=== PATIENT | male | born 1950 | race Caucasian/White ===

== ENCOUNTER → 2021-09-22 13:45 | Outpatient (CLI) | payer BC, SELFPAY ==
--- NOTE | 2021-09-22 | DI.MRI.S_ITS ---
PROCEDURE: MR LUMBAR SPINE WO CON INDICATIONS: Low back pain, unspecified TECHNIQUE: Noncontrast sagittal T1 spin echo and T2 fast echo, sagittal STIR, and T2 fast spin echo through the lumbar spine. In cases with scoliosis, additional coronal T2 fast spin echo may be performed. COMPARISON: [facility], MR, MR LUMBAR SPINE WITHOUT CONTRAST, 10/14/2005, 10:22. [facility] [place], CR, XR LUMBAR SPINE WITH OBLIQUES PLUS FLEXION EXTENSION, 09/01/2021, 10:01. [facility], MR, MR LUMBAR SPINE WITHOUT CONTRAST, 06/10/2016, 11:54. [facility], MR, MR LUMBAR SPINE WITHOUT CONTRAST, 09/09/2011, 13:03. [facility], MR, L-SPINE WITHOUT CONTRAST, 09/09/2011, 13:03. FINDINGS: Image quality: Excellent. Alignment and Curvature: There is mild, approximately 5 millimeters of L4-L5 anterolisthesis secondary to facet hypertrophy. Bone Marrow: Modic type 2 reactive endplate changes noted adjacent to the L5-S1 disc. No acute vertebral body compression fractures. Spinal Cord: Conus medullaris terminates at the L1 level. Visualized cord demonstrates normal signal and size. Paraspinous Soft Tissues: No paravertebral masses. T12-L1: Slight loss of disc signal. No central stenosis. No neural foraminal narrowing. No neural compression. L1-L2: Slight loss of disc signal. No central stenosis. No neural foraminal narrowing. No neural compression. L2-L3: Slight loss of disc signal. Mild, diffuse disc bulge. Mild narrowing of the central canal. No neural foraminal narrowing. No neural compression. L3-L4: Loss of disc signal. Mild, diffuse disc bulge. No central stenosis. Mild bilateral neural foraminal narrowing. No neural compression. L4-L5: Loss of disc signal. Mild, diffuse disc bulge. Moderate bilateral facet hypertrophy. Severe narrowing of the central canal with slight compression of the traversing nerve roots of the cauda equina. Mild to moderate bilateral neural foraminal narrowing. L5-S1: Loss of disc signal and height. Mild, diffuse disc bulge. Mild bilateral facet hypertrophy. No central stenosis. Mild to moderate bilateral neural foraminal narrowing. No neural compression. IMPRESSION: 1. Grade 1 L4-L5 degenerative spondylolisthesis. 2. Multilevel degenerative disc disease. 3. Multilevel facet arthropathy. 4. Severe L4-L5 central canal narrowing with slight compression of the traversing nerve roots of the cauda equina. 5. No severe neural foraminal narrowing. Dictated by: Lauren Parisi MD, PhD on 09/22/2021 at 15:07 Approved by: Lauren Parisi MD, PhD on 09/22/2021 at 15:11
== END ==
PROVIDERS: Family Provider Family Medicine; PCP Family Medicine; Referring Provider Physical Medicine & Rehabilitation Pain Medicine; Visit Provider Physical Medicine & Rehabilitation Pain Medicine
DX: M51.36 Other intervertebral disc degeneration, lumbar region (principal); M51.37 Other intervertebral disc degeneration, lumbosacral region; M47.816 Spondylosis without myelopathy or radiculopathy, lumbar region; M47.817 Spondylosis without myelopathy or radiculopathy, lumbosacral region; M48.061 Spinal stenosis, lumbar region without neurogenic claudication; M43.16 Spondylolisthesis, lumbar region; M54.50 Low back pain, unspecified
CPT/HCPCS: 72148

== ENCOUNTER → 2024-06-14 13:45 | Outpatient (CLI) | payer MEDICARE, BC, SELFPAY ==
--- NOTE | 2024-06-14 13:49 | DI.ECHO.S_ITS ---
[facility] : : [address] : : [place] : : [id number] : : Phone: [phone] Echocardiogram Report + + :Name: BOYD BERGER Study Date: 06/14/2024 Height: 68 in : :[facility] ReadingLocation: Weight: 150 lb : : Gender: Male BSA: 1.8 m2 : :: 1950 Age: 74 yrs BP: 143/74 mmHg: :Reason For Study: HYPERTENSION : :Ordering Physician: AUDRA, : :JACOB Mcqueen Performed By: Wilian Guo : :Referring: JACOB ZHU : + + Interpretation Summary The left ventricle is normal in size. The ejection fraction is estimated to be 55-60%. There are no focal wall motion abnormalities. Diastolic parameters suggest a relaxation abnormality of the left ventricle, consistent with probable normal filling pressures. The right ventricle is normal in size and function. The right ventricular systolic pressure is estimated to be at least 41 mmHg based on an estimated right atrial pressure of 8 mm Hg. The left atrial size is normal. There is no significant valvular heart disease. The aortic root is normal size. Large hepatic cyst measuring 6.0 x 8.1 cm. Procedure: A two-dimensional transthoracic echocardiogram with color flow and Doppler was performed. The study quality was technically good. There is no prior echocardiogram noted for this patient. The patient was in normal sinus rhythm during the exam. Left Ventricle: The left ventricle is normal in size. There is normal left ventricular wall thickness. There is no ventricular septal defect visualized. The ejection fraction is estimated to be 55-60%. There are no focal wall motion abnormalities. Diastolic parameters suggest a relaxation abnormality of the left ventricle, consistent with probable normal filling pressures. Right Ventricle: The right ventricle is normal in size and function. Atria: The left atrial size is normal. Right atrial size is normal. There is no Doppler evidence for an interatrial shunt. Mitral Valve: The mitral valve leaflets appear normal. There is no evidence of stenosis, fluttering, or prolapse. There is no mitral regurgitation noted. Aortic Valve: The aortic valve is trileaflet. The aortic valve opens well. There is trace aortic regurgitation. Tricuspid Valve: The tricuspid valve leaflets are thin and pliable. There is trace tricuspid regurgitation. The right ventricular systolic pressure is estimated to be at least 41 mmHg based on an estimated right atrial pressure of 8 mm Hg. Pulmonic Valve: The pulmonic valve leaflets are thin and pliable; valve motion is normal. There is trace pulmonic regurgitation. There is no significant valvular heart disease. Great Vessels: The aortic root is normal size. The dimensions of the ascending aorta are normal. The pulmonary artery is normal size. The IVC is dilated (diameter is greater than 2.1 cm) yet it collapses greater than 50% with a sniff. This suggests a right atrial pressure of 8 mm Hg. Pericardium/ Pleura There is no pericardial effusion. There is no pleural effusion. Large hepatic cyst measuring 6.0 x 8.1 cm. MMode/2D Measurements & Calculations LVIDd: 4.4 cm LVOT diam: 2.1 cm LVIDs: 2.9 cm Ao root diam: 3.3 cm FS: 35.0 % asc Aorta Diam: 3.5 cm EPSS: 0.83 cm IVSd: 0.71 cm LVPWd: 0.77 cm LV olmedo. diameter/BSA (cm/m^2): 2.4 LV sys. diameter/BSA (cm/m^2): 1.6 LA A2 area: 18.1 cm2 RA long axis: 4.4 cm LA A4 area: 15.2 cm2 RA area: 11.6 cm2 LA length (vol): 4.6 cm RA vol: 25.7 ml LA vol: 50.9 ml RA : 14.2 ml/m2 LA vol index: 28.1 ml/m2 IVC diam: 2.3 cm RVD1 (basal): 3.4 cm RVD2 (mid): 3.3 cm TAPSE: 2.9 cm Doppler Measurements & Calculations Ao V2 max: 128.2 cm/sec LVOT Max Shamar: 110.4 cm/sec Ao V2 mean: 89.5 cm/sec LV V1 max P.9 mmHg Ao max P.6 mmHg LV V1 VTI: 21.3 cm Ao mean P.5 mmHg KARAN(I,D): 2.8 cm2 Ao V2 VTI: 26.6 cm KARAN(V,D): 3.0 cm2 sev ratio: 0.80 KARAN indexed to BSA (cm^2/m^2): 1.5 MV E max shamar: 82.0 cm/sec TR max shamar: 288.2 cm/sec MV A max shamar: 104.3 cm/sec TR max P.2 mmHg MV E/A: 0.79 PA V2 max: 91.2 cm/sec Med Peak E' Shamar: 5.4 cm/sec PA V2 mean: 63.8 cm/sec E/E' med: 15.1 PA mean P.8 mmHg Lat Peak E' Shamar: 6.4 cm/sec PA pr(Accel): 37.9 mmHg E/E' lat: 12.7 E/e' average: 13.9 MV dec time: 0.26 sec SV(LVOT): 73.5 ml Reading Physician:01:12 AM
== END ==
PROVIDERS: Family Provider Family Medicine; PCP Family Medicine; Referring Provider Family Medicine; Visit Provider Family Medicine
DX: G45.3 Amaurosis fugax (principal); I10 Essential (primary) hypertension; K76.89 Other specified diseases of liver
CPT/HCPCS: 93306

== ENCOUNTER → 2024-06-19 11:46 | Outpatient (CLI) | payer MEDICARE, BC, SELFPAY ==
--- NOTE | 2024-06-19 | DI.US.S_ITS ---
PROCEDURE: US CAROTID DOPPLER BI INDICATIONS: RIGHT EYE VISION LOSS. HYPERTENSION. TECHNIQUE: Color and pulse Doppler interrogation was performed of both carotid systems, with image documentation and velocity measurements. COMPARISON: None. FINDINGS: Stenosis calculations are based on SRU (Society of Radiologists in Ultrasound) criteria. Right side: Brachial blood pressure: 118/73 mm Hg. Common carotid artery peak systolic velocity: 77 cm/sec. Internal carotid artery peak systolic velocity: 90 cm/sec. Internal carotid artery end diastolic velocity: 32 cm/sec. External carotid artery peak systolic velocity: 132 cm/sec. ICA/CCA peak systolic ratio: 1.2 . Yao scale imaging description: Mild calcified atherosclerotic plaque present. Percent internal carotid artery stenosis: Less than 50 percent . Vertebral artery: Flow direction is antegrade. Left side: Brachial blood pressure: 120/70 mm Hg. Common carotid artery peak systolic velocity: 71 cm/sec. Internal carotid artery peak systolic velocity: 113 cm/sec. Internal carotid artery end diastolic velocity: 35 cm/sec. External carotid artery peak systolic velocity: 110 cm/sec. ICA/CCA peak systolic ratio: 1.6 . Yao scale imaging description: Mild atherosclerotic disease Percent internal carotid artery stenosis: Less than 50 percent . Vertebral artery: Flow direction is antegrade. IMPRESSION: 1. In the right carotid artery, there is less than 50 percent stenosis based on peak systolic velocity criteria. 2. In the left carotid artery, there is less than 50 percent stenosis based on peak systolic velocity criteria. 3. Antegrade vertebral arteries. Dictated by: Dexter Escalera M.D. on 06/19/2024 at 12:50 Approved by: Dexter Escalera M.D. on 06/19/2024 at 12:51
== END ==
LOC: US 11:48
PROVIDERS: Family Provider Family Medicine; PCP Family Medicine; Referring Provider Family Medicine; Visit Provider Family Medicine
DX: G45.3 Amaurosis fugax (principal); I10 Essential (primary) hypertension; H54.61 Unqualified visual loss, right eye, normal vision left eye; I65.23 Occlusion and stenosis of bilateral carotid arteries
CPT/HCPCS: 93880

== ENCOUNTER → 2024-08-08 09:03 | Outpatient (CLI) | payer MEDICARE, BC, SELFPAY ==
--- NOTE | 2024-08-08 09:05 | DI.US.S_ITS ---
PROCEDURE: US ABDOMEN LIMITED INDICATIONS: LIVER CYST TECHNIQUE: Real-time scanning was performed of the abdominal and retroperitoneal organs, with image documentation. COMPARISON: None. FINDINGS: Liver: Liver is normal in size and homogeneous in echotexture. There is a 7.9 x 6.7 x 5.5 centimeter anechoic lesion with scattered peripheral calcifications in the left hepatic lobe. Gallbladder: No gallstones. Punctate echogenic foci which could represent gallbladder adenomyomatosis or gallbladder wall calcifications.. No wall thickening. No pericholecystic edema. Negative sonographic Colbert's sign. Biliary ducts: Intrahepatic bile ducts are non-dilated. Extrahepatic bile duct caliber measures 5.8 mm. Normal is 6-7 mm or less in diameter, or 10 mm or less post-cholecystectomy. Pancreas: Visualized portions of the pancreas are sonographically normal. Tail of pancreas not visualized due to caliber gas and cannot be evaluated. Miscellaneous: No free abdominal fluid. IMPRESSION: Complex left hepatic cyst. Recommend CT scan of the abdomen for additional evaluation. Gallbladder wall echogenic foci concerning for adenomyomatosis or gallbladder wall calcification. Recommend evaluation at time of CT imaging. Dictated by: Lauren Parisi MD, PhD on 08/08/2024 at 11:55 Approved by: Lauren Parisi MD, PhD on 08/08/2024 at 12:00
== END ==
PROVIDERS: Family Provider Family Medicine; PCP Family Medicine; Referring Provider Family Medicine; Visit Provider Family Medicine
DX: K76.89 Other specified diseases of liver (principal)
CPT/HCPCS: 76705

== ENCOUNTER → 2024-09-06 10:47 | Outpatient (CLI) | payer MEDICARE, BC, SELFPAY ==
--- NOTE | 2024-09-06 10:49 | DI.CT.S_ITS ---
PROCEDURE: CT ABDOMEN LIVER PROTOCOL INDICATIONS: LIVER CYST,THICKENING WALL OF GALLBLADDER TECHNIQUE: 4 phase scanning was performed. Non-contrast 5 mm axial sections acquired from the diaphragm to the iliac crests. Following the administration of intravenous contrast, 5 mm thick arterial-phase, portal venous-phase, and 5-minute delayed phase images were acquired through the liver. 5 mm thick coronal and sagittal reformats were performed. For radiation dose reduction, the following was used: automated exposure control, adjustment of mA and/or kV according to patient size. COMPARISON: [facility], , US ABDOMEN LIMITED, 08/08/2024, 9:36. FINDINGS: Image quality: Excellent. Lower chest: Unremarkable. ABDOMEN: Liver: No solid mass. Benign cyst in the left liver measuring 6.8 cm. Gallbladder: No radiopaque gallstones or wall thickening. No calcification. Biliary ducts: No biliary dilation. Pancreas: No ductal dilation. Findings of chronic calcific pancreatitis. Spleen: Size is within normal limits. Adrenal Glands: No adrenal nodules. Kidneys and Ureters: No hydronephrosis. No solid mass. No complex renal cystic lesion which requires follow up. Stomach and Bowel: Normal colonic caliber, without significant wall thickening. The appendix is not dilated. Peritoneum: No abnormal intraperitoneal fluid. No free air. Ventral Wall: No hernia. Abdominal Nodes: No retroperitoneal or mesenteric adenopathy by size criteria. Vessels: Aorta and inferior vena cava are normal in size. Bones: No aggressive osseous abnormality. IMPRESSION: 1. Benign cyst in the liver measuring 6.8 cm. No ascites. 2. Findings of chronic calcific pancreatitis. No peripancreatic fluid collection. 3. No pericholecystic fluid. No calcified gallstones. No gallbladder calcification. Dictated by: Sloan Castle M.D. on 09/06/2024 at 21:33 Approved by: Sloan Castle M.D. on 09/06/2024 at 21:44
[2024-09-06 11:29] LABS: Estimated Glomerular Filt Rate > 60 mL/min (>60)
== END ==
PROVIDERS: Family Provider Family Medicine; PCP Family Medicine; Referring Provider Nurse Practitioner; Visit Provider Nurse Practitioner
DX: K76.89 Other specified diseases of liver (principal); K86.1 Other chronic pancreatitis; K82.8 Other specified diseases of gallbladder
CPT/HCPCS: 36415; 74170; 82565; Q9967